=== PATIENT | male | born 1945 | race Caucasian/White ===

== ENCOUNTER 2023-11-08 09:47 | Inpatient (IN) | payer OTHER ==
[2023-11-08] MEDS ORDERED: LEVALBUTEROL 1.25 MG/3 ML NEB ONE (10:11)
[2023-11-08] MEDS ORDERED: METHYLPREDNISOLONE 125 MG INJ ONE (10:11)
[2023-11-08] MEDS ORDERED: MAGNESIUM SULFATE 1 gm IVPB 1 GM/100 ML BAG IV ONE (10:12)
--- NOTE | 2023-11-08 10:38 | RAD REPORT ---
EXAM DESCRIPTION: Marjorie Single View11/08/2023 10:11 am CLINICAL HISTORY: Shortness breath COMPARISON: 2013 FINDINGS: Bilateral interstitial lung opacities have developed Heart is normal size A battery pack overlies left chest IMPRESSION: Development of bilateral social lung opacities. This could represent an acute process broderick ch as pneumonitis/atypical pneumonia or chronic changes
[2023-11-08 10:41] LABS: Absolute Lymphocytes (CBC) 0.2 K/uL (0.7-4.9); Absolute Monocytes 1.2 K/uL (0.1-1.3); Absolute Neutrophil 7.5 K/uL (1.8-8.0); Basophils % 0.2 % (0-1.3); Hematocrit 41.5 % (39.6-49.0); Hemoglobin 13.9 g/dL (13.6-17.9); Lymphocytes % 1.9 % (15.3-44.8); MCH 32.8 pg (27.0-35.0); MCHC 33.6 g/dL (32.0-36.0); MCV 97.6 fL (80-100); MPV 9.4 fL (7.6-11.3); Monocytes % 13.3 % (3.3-12.3); Neutrophils % 84.6 % (41.7-73.7); Nucleated Red Blood Cells % 0.2 % (0-0); Platelets 256 thou/uL (152-406); RBC Red Blood Cell Count 4.25 M/uL (4.33-5.43); Red Cell Distribution Width 15.4 % (12.1-15.2)
[2023-11-08 10:55] LABS: SARS-CoV-2 Antigen CONTROL BLUE LINE VIS/BG OK; SARS-CoV-2 Antigen Rapid Res Negative (Negative)
[2023-11-08 11:03] LABS: Albumin 3.1 g/dL (3.4-5.0); Albumin/Globulin Ratio 0.7 (1.1-1.8); Anion Gap 14.5 mEq/L (5.0-15.0); Bilirubin Total 0.8 mg/dL (0.2-1.0); Globulin 4.7 g/dL (2.3-3.5); Potassium 4.5 mEq/L (3.5-5.1); Protein, Total 7.8 g/dL (6.4-8.2)
[2023-11-08 11:05] LABS: Troponin High Sensitivity 119.1 pg/mL (<58.9)
[2023-11-08 11:09] LABS: PT Prothrombin Time 28.3 SECONDS (9.5-12.5); PTT, Activated Partial Thromb 34.2 SECONDS (24.3-36.9); Protime INR 2.65
[2023-11-08] MEDS ORDERED: AZITHROMYCIN 500 MG INJ IVPB ONE (11:19)
[2023-11-08] MEDS ORDERED: NA CHLORIDE 0.9% 500 ML ONE (11:19)
[2023-11-08] MEDS ORDERED: CEFTRIAXONE 1000 MG/VIAL ONE (11:19)
[2023-11-08] MEDS ORDERED: NA CHLORIDE 0.9% 250 ML ONE (11:19)
[2023-11-08] MEDS ORDERED: INSULIN REGULAR (HUMAN) 100 UNIT/ML ONE (11:19)
--- NOTE | 2023-11-08 11:56 | EDPHYS ---
Physician Documentation [facility] Name: Drake Mosquera Age: 78 yrs Sex: Male : 1945 Arrival Date: 11/08/2023 Time: 09:47 Bed 5 Private MD: ED Physician Dameon Hudson HPI: 11/07 11:00 This 78 yrs old Male presents to ER via EMS with complaints of Shortness Of Breath, rn Found on floor. 11:00 The patient has shortness of breath at rest. Onset: The symptoms/episode began/occurred rn at an unknown time. Duration: The symptoms are continuous. The patient's shortness of breath is aggravated by exertion, is alleviated by nothing. Severity of symptoms: At their worst the symptoms were moderate in the emergency department the symptoms have improved. The patient has experienced a previous episode. Patient reports shortness of breath over the last couple of days, worsening today, generalized weakness and malaise, was found on floor and could not get up due to generalized weakness and dyspnea. EMS reports oxygen saturation in the 50s. Patient reports active smoker. Patient also reports chills but no fever. No hemoptysis. No history of DVT or PE. No chest pain.. Historical: - Allergies: 10:15 No Known Allergies; aa5 - PMHx: 15:39 PVD; High Cholesterol; CAD; Osteoarthritis; BPH; HTN; DM2; hb - PSHx: 15:39 Knee - Left; Splenic Laceration Repair; Femoral Artery Graft - Left; hb - Immunization history:: Adult Immunizations up to date. - Social history:: Smoking status: Patient reports the use of cigarette tobacco products. - Family history:: not pertinent. - Hospitalizations: : No recent hospitalization is reported. ROS: 11:00 Constitutional: Negative for fever, chills, and weight loss, Cardiovascular: Negative rn for chest pain, palpitations, and edema, Respiratory: Positive for cough and shortness of breath Abdomen/GI: Negative for abdominal pain, nausea, vomiting, diarrhea, and constipation, MS/Extremity: Negative for injury and deformity, Skin: Negative for injury, rash, and discoloration, Neuro: Positive for generalized weakness Exam: 11:00 Constitutional: This is a well developed, well nourished patient who is awake, alert, rn moderate tachypnea, disheveled Head/Face: Normocephalic, atraumatic. ENT: Dry mucous membranes, no stridor Cardiovascular: Regular rate and rhythm. No pulse deficits. Respiratory: Moderate tachypnea, diminished breath sounds bilateral bases. Some retractions present Abdomen/GI: Soft, non-tender MS/ Extremity: Pulses equal, no cyanosis. Neurovascular intact. Full, normal range of motion. Equal circumference. Neuro: Awake and alert, GCS 15 Vital Signs: 09:51 BP 149 / 70; Pulse 97; Resp 24; Pulse Ox 94% on Nebulizer Mask; iw 10:08 Resp 27; Pulse Ox 81% on 4 lpm NC; hb 10:38 BP 140 / 70; Pulse 89; Resp 18; Pulse Ox 100% on 40 lpm BiPAP; hb 11:07 BP 142 / 69; Pulse 86; Resp 18; Pulse Ox 98% on 40 lpm BiPAP; hb 11:58 BP 139 / 55; Pulse 89; Resp 21; Pulse Ox 95% on 40 lpm BiPAP; hb 13:00 BP 116 / 53; Pulse 78; Resp 15; Pulse Ox 96% on 40 lpm BiPAP; hb 14:00 BP 107 / 53; Pulse 77; Resp 16; Pulse Ox 95% on 40 lpm BiPAP; hb 15:00 BP 121 / 66; Pulse 77; Resp 15; Pulse Ox 99% on 40 lpm BiPAP; hb MDM: 09:49 Patient medically screened. rn 11:54 Differential diagnosis: CHF exacerbation, Chronic Obstructive Pulmonary Disease rn Myocardial Infarction pneumonia, Pneumothorax pulmonary edema, Pulmonary Embolism. Data reviewed: vital signs, nurses notes, lab test result(s), EKG, radiologic studies, plain films, and as a result, I will admit patient. Consideration of Admission/Observation Patient was admitted/placed on observation. Escalation of care including admission/observation considered. Management of patient was discussed with the following: Primary Care Provider: Dr. Sanchez, requests CT PE protocol and agrees with admission for pneumonia. I considered the following discharge prescriptions or medication management in the emergency department Medications were administered in the Emergency Department. See MAR. Care significantly affected by the following chronic conditions: Hypertension. Counseling: I had a detailed discussion with the patient and/or guardian regarding the historical points, exam findings, and any diagnostic results supporting the discharge/admit diagnosis, lab results, radiology results, the need for further work-up and treatment in the hospital. Response to treatment: the patient's symptoms have mildly improved after treatment, and as a result, I will admit patient. ED course: I personally spent 35 minutes engaged in work directly related to the individual patient's care. This does not include any time spent performing procedures. The patient has been deemed critically ill because of severe hypoxia and respiratory distress requiring noninvasive ventilation, bilateral pneumonia and need for admission with consultation with PCP. 13:45 ED course: Lactate downtrending. Sepsis reevaluation completed. rn 11/07 09:51 Order name: Blood Culture Adult (2) rn 11/07 09:51 Order name: CBC with Diff; Complete Time: 10:49 rn 11/07 09:51 Order name: CMP; Complete Time: 11:06 rn 11/07 09:51 Order name: Lactate w/ 2H reflex if indic.; Complete Time: 10:49 rn 11/07 09:51 Order name: Protime (+inr); Complete Time: 11:19 rn 11/07 09:51 Order name: Ptt, Activated; Complete Time: 11:19 rn 11/07 09:51 Order name: BNP; Complete Time: 11:06 rn 11/07 09:51 Order name: Troponin High Sensitivity; Complete Time: 11:06 rn 11/07 09:51 Order name: SARS RAPID; Complete Time: 10:58 rn 11/07 09:51 Order name: Flu; Complete Time: 11:06 rn 11/07 13:27 Order name: Lactate Sepsis 2 HR Follow-up; Complete Time: 13:45 EDMS 11/07 09:51 Order name: Chest Single View XRAY; Complete Time: 10:49 rn 11/07 10:04 Order name: BIPAP rn 11/07 11:07 Order name: CT Chest For PE Angio; Complete Time: 13:00 rn 11/07 09:51 Order name: EKG; Complete Time: 09:51 rn 11/07 09:51 Order name: Accucheck; Complete Time: 10:36 rn 11/07 09:51 Order name: Cardiac monitoring; Complete Time: 09:52 rn 11/07 09:51 Order name: EKG - Nurse/Tech; Complete Time: 09:52 rn 11/07 09:51 Order name: IV Saline Lock - Large Bore; Complete Time: 09:52 rn 11/07 09:51 Order name: Labs collected and sent; Complete Time: 10:18 rn 11/07 09:51 Order name: O2 Per Protocol; Complete Time: 09:52 rn 11/07 09:51 Order name: O2 Sat Monitoring; Complete Time: 09:52 rn 11/07 09:51 Order name: Vital Signs; Complete Time: 09:52 rn 11/07 10:39 Order name: Labs - recollect needed: recollect blue top please per robi from lab; aa Complete Time: 10:52 Administered Medications: 10:15 Drug: MethylPrednisoLONE IVP 125 mg IVP once Route: IVP; Site: right antecubital; aa5 11:00 Follow up: Response: No adverse reaction hb 10:15 Drug: Levalbuterol Inhalation 1.25 mg Inhalation once Route: Inhalation; aa5 11:00 Follow up: Response: No adverse reaction hb 10:15 Drug: Levalbuterol Inhalation 1.25 mg Inhalation once Route: Inhalation; aa5 11:00 Follow up: Response: No adverse reaction hb 10:15 Drug: Magnesium Sulfate IVPB 1 grams IVPB once over 1 hrs Route: IVPB; Infused Over: 1 aa5 hrs; Site: right antecubital; 11:16 Follow up: Response: No adverse reaction; IV Status: Completed infusion; IV Intake: hb 100ml 11:30 Drug: Rocephin IV 1 grams IV at calculated rate once; Given slow IV push per pharmacy hb instructions Route: IV; Rate: calculated rate; Site: right antecubital; 12:00 Follow up: Response: No adverse reaction; IV Status: Completed infusion hb 11:30 Drug: Insulin Regular Human Sub-Q 5 units Sub-Q once {Co-Signature: mb9 (Ni Barba [facility] RN).} Route: Sub-Q; Site: right upper arm; 12:05 Follow up: Response: No adverse reaction hb 11:33 Drug: Zithromax IVPB 500 mg IVPB once over 1 hrs; mix in 250 mL NS Route: IVPB; Infused hb Over: 1 hrs; Site: right antecubital; 13:30 Follow up: Response: No adverse reaction; IV Status: Completed infusion; IV Intake: hb 250ml 11:33 Drug: NS 0.9% IV 500 ml IV at bolus once Route: IV; Rate: bolus; Site: right antecubital; 12:05 Follow up: Response: No adverse reaction; IV Status: Completed infusion; IV Intake: hb 500ml Disposition: 11:54 Critical Care:. rn Disposition Summary: 11/08/23 11:55 Hospitalization Ordered Notes: Hospitalization Status: Inpatient Admission rn Provider: Cristhian Sanchez rn Condition: Stable rn Problem: new rn Symptoms: have improved rn Bed/Room Type: Standard rn Location: Telemetry/MedSurg (Inpatient)(11/08/23 15:43) eb Room Assignment: 213(11/08/23 15:43) eb Diagnosis - Pneumonia, unspecified organism rn - Hypoxemia rn - Dyspnea, unspecified rn Forms: - Medication Reconciliation Form rn - SBAR form rn - Leadership Thank You Letter web marketing intern time excluding procedures: 11:54 Critical care time: Bedside Care: 35 minutes, Consultation: 5 minutes. Total time: 40 rn minutes Signatures: Dispatcher [employer] EDDameon Warner MD MD rn Calderon, Audri RN RN aa5 Sunita Langley RN RN Bianca Zamora Kelly RN RN kb3 Ni Barab RN mb9 Corrections: (The following items were deleted from the chart) 10:55 10:44 Labs - recollect needed ordered. eb hb 14:52 11:55 Telemetry/MedSurg (Inpatient) rn kb3 14:52 11:55 rn kb3 15:43 14:52 [facility] ER HOLD kb3 eb 15:43 14:52 ERHOLD- kb3 eb
--- NOTE | 2023-11-08 11:56 | ER ---
Nurse's Notes [facility] Name: Drake Mosquera Age: 78 yrs Sex: Male : 1945 Arrival Date: 11/08/2023 Time: 09:47 Bed 5 Private MD: Diagnosis: Pneumonia, unspecified organism;Hypoxemia;Dyspnea, unspecified Presentation: 11/07 09:48 Chief complaint: EMS states: was found on floor X 1-2 hours, was 50's on RA, no hx of iw COPD or CHF. 09:48 Method Of Arrival: EMS iw 09:51 Coronavirus screen: Client presents with at least one sign or symptom that may indicate iw coronavirus-19. Ebola Screen: Patient negative for fever greater than or equal to 101.5 degrees Fahrenheit, and additional compatible Ebola Virus Disease symptoms Patient denies exposure to infectious person. Patient denies travel to an Ebola-affected area in the 21 days before illness onset. No symptoms or risks identified at this time. 09:51 Acuity: SHELLIE 2 iw 09:52 Initial Sepsis Screen: Does the patient meet any 2 criteria? RR > 20 per min. HR > 90 iw bpm. Does the patient have a suspected source of infection? No. Patient's initial sepsis screen is negative. Risk Assessment: Do you want to hurt yourself or someone else? Patient reports no desire to harm self or others. Onset of symptoms was November 08, 2023. Care prior to arrival: IV initiated. 18 GA, in the right antecubital area, Glucose check: 461. Historical: - Allergies: 10:15 No Known Allergies; aa5 - PMHx: 15:39 PVD; High Cholesterol; CAD; Osteoarthritis; BPH; HTN; DM2; hb - PSHx: 15:39 Knee - Left; Splenic Laceration Repair; Femoral Artery Graft - Left; hb - Immunization history:: Adult Immunizations up to date. - Social history:: Smoking status: Patient reports the use of cigarette tobacco products. - Family history:: not pertinent. - Hospitalizations: : No recent hospitalization is reported. Screenin:15 [facility] ED Fall Risk Assessment (Adult) History of falling in the last 3 months, mb9 including since admission Yes- single mechanical fall (1 pt) Confusion or Disorientation No (0 pts) Intoxicated or Sedated No (0 pts) Impaired Gait Yes (1 pt) Mobility Assist Device Used No (0 pt) Altered Elimination No (0 pt) Score/Fall Risk Level 3 or more points = High Risk Oriented to surroundings, Maintained a safe environment, Educated pt \T\ family on fall prevention, incl call for assistance when getting out of bed, Assessed \T\ reinforced patient's understanding of fall precautions. Abuse screen: Denies threats or abuse. Nutritional screening: No deficits noted. Tuberculosis screening: No symptoms or risk factors identified. Assessment: 10:14 Reassessment: RT at bedside placing BiPap. mb9 10:20 General: Appears distressed, Behavior is calm, cooperative. Pain: Denies pain. Neuro: hb Level of Consciousness is awake, alert, obeys commands, Oriented to person, place, time, situation. Cardiovascular: Patient's skin is warm and dry. Rhythm is sinus tachycardia. Respiratory: Airway is patent Respiratory effort is labored, Respiratory pattern is tachypnea Breath sounds are coarse bilaterally. GI: No signs and/or symptoms were reported involving the gastrointestinal system. : No signs and/or symptoms were reported regarding the genitourinary system. EENT: No signs and/or symptoms were reported regarding the EENT system. Derm: Skin is pink, warm \T\ dry. Musculoskeletal: No signs and/or symptoms reported regarding the musculoskeletal system. 10:24 Reassessment: BiPAP 12/5 R12, 40% FiO2. hb 11:06 Reassessment: Remains on BiPAP, watching television in no apparent distress. Patient hb states symptoms have improved. 11:58 Reassessment: Patient appears in no apparent distress at this time. Patient and/or hb family updated on plan of care and expected duration. Pain level reassessed. Patient is alert, oriented x 3, equal unlabored respirations, skin warm/dry/pink. 13:30 Reassessment: Patient appears in no apparent distress at this time. Patient and/or hb family updated on plan of care and expected duration. Pain level reassessed. Patient is alert, oriented x 3, equal unlabored respirations, skin warm/dry/pink. 14:39 Reassessment: Patient appears in no apparent distress at this time. Patient and/or hb family updated on plan of care and expected duration. Pain level reassessed. Patient is alert, oriented x 3, equal unlabored respirations, skin warm/dry/pink. 15:15 Reassessment: Patient appears in no apparent distress at this time. Patient and/or hb family updated on plan of care and expected duration. Pain level reassessed. Patient is alert, oriented x 3, equal unlabored respirations, skin warm/dry/pink. Vital Signs: 09:51 BP 149 / 70; Pulse 97; Resp 24; Pulse Ox 94% on Nebulizer Mask; iw 10:08 Resp 27; Pulse Ox 81% on 4 lpm NC; hb 10:38 BP 140 / 70; Pulse 89; Resp 18; Pulse Ox 100% on 40 lpm BiPAP; hb 11:07 BP 142 / 69; Pulse 86; Resp 18; Pulse Ox 98% on 40 lpm BiPAP; hb 11:58 BP 139 / 55; Pulse 89; Resp 21; Pulse Ox 95% on 40 lpm BiPAP; hb 13:00 BP 116 / 53; Pulse 78; Resp 15; Pulse Ox 96% on 40 lpm BiPAP; hb 14:00 BP 107 / 53; Pulse 77; Resp 16; Pulse Ox 95% on 40 lpm BiPAP; hb 15:00 BP 121 / 66; Pulse 77; Resp 15; Pulse Ox 99% on 40 lpm BiPAP; hb ED Course: 09:48 Patient arrived in ED. iw 09:49 Dameon Hudson MD is Attending Physician. rn 09:52 Triage completed. iw 09:52 Oxygen administered via a nebulizer mask. hb 09:55 Patient has correct armband on for positive identification. Placed in gown. Bed in low hb position. Call light in reach. Side rails up X 1. Client placed on continuous cardiac and pulse oximetry monitoring. NIBP monitoring applied. teletypesetter monitor on. Pulse ox on. NIBP on. 10:10 Notified ED physician of other SpO2 81 on 4LNC, RT notified of BIPAP order. hb 10:13 Chest Single View XRAY In Process Unspecified. EDMS 10:14 Initial lab(s) drawn, by me, sent to lab. First set of blood cultures drawn by me, EKG hb done, by ED staff, reviewed by Dameon Hudson MD COVID swab sent to lab. Flu and/or RSV swab sent to lab. Inserted saline lock: 20 gauge in left antecubital area, using aseptic technique. Blood collected. 10:15 O2 via BIPAP. mb9 10:15 Arm band placed on. mb9 10:16 Door closed. Noise minimized. Warm blanket given. Pillow given. mb9 10:18 Sunita Langley, RN is Primary Nurse. hb 10:18 Provided Education on: tests, result times. hb 10:24 No provider procedures requiring assistance completed. hb 10:36 BIPAP Sent. hb 10:53 Lab(s) recollected, by me, sent to lab. hb 11:41 RN/COVER CUTTER escort patient out of department to CT scan. hb 11:53 CT Chest For PE Angio In Process Unspecified. EDMS 11:55 Cristhian Sanchez MD is Hospitalizing Provider. rn 15:28 Patient admitted, IV remains in place. hb Administered Medications: 10:15 Drug: MethylPrednisoLONE IVP 125 mg IVP once Route: IVP; Site: right antecubital; aa5 11:00 Follow up: Response: No adverse reaction hb 10:15 Drug: Levalbuterol Inhalation 1.25 mg Inhalation once Route: Inhalation; aa5 11:00 Follow up: Response: No adverse reaction hb 10:15 Drug: Levalbuterol Inhalation 1.25 mg Inhalation once Route: Inhalation; aa5 11:00 Follow up: Response: No adverse reaction hb 10:15 Drug: Magnesium Sulfate IVPB 1 grams IVPB once over 1 hrs Route: IVPB; Infused Over: 1 aa5 hrs; Site: right antecubital; 11:16 Follow up: Response: No adverse reaction; IV Status: Completed infusion; IV Intake: hb 100ml 11:30 Drug: Rocephin IV 1 grams IV at calculated rate once; Given slow IV push per pharmacy hb instructions Route: IV; Rate: calculated rate; Site: right antecubital; 12:00 Follow up: Response: No adverse reaction; IV Status: Completed infusion hb 11:30 Drug: Insulin Regular Human Sub-Q 5 units Sub-Q once {Co-Signature: jamal (Ni Barba Nel RN).} Route: Sub-Q; Site: right upper arm; 12:05 Follow up: Response: No adverse reaction hb 11:33 Drug: Zithromax IVPB 500 mg IVPB once over 1 hrs; mix in 250 mL NS Route: IVPB; Infused hb Over: 1 hrs; Site: right antecubital; 13:30 Follow up: Response: No adverse reaction; IV Status: Completed infusion; IV Intake: hb 250ml 11:33 Drug: NS 0.9% IV 500 ml IV at bolus once Route: IV; Rate: bolus; Site: right antecubital; 12:05 Follow up: Response: No adverse reaction; IV Status: Completed infusion; IV Intake: hb 500ml Medication: 10:20 VIS not applicable for this client. hb Intake: 11:16 IV: 100ml; Total: 100ml. hb 12:05 IV: 500ml; Total: 600ml. hb 13:30 IV: 250ml; Total: 850ml. hb Outcome: 11:55 Decision to Hospitalize by Provider. rn 15:26 Admitted to ER Hold. Please see [facility] for further documentation. hb 15:26 Condition: stable 15:26 Instructed on the need for admit, Demonstrated understanding of instructions, 16:42 Patient left the ED. mb9 Signatures: Dispatcher [employer] EDPat Maxwell RN RN Dameon Hudson MD MD rn Calderon, Audri, RN RN aa5 Sunita Langley RN RN hb Breneman, Mary Beth, RN RN mb9 Ni Barba RN mb9 Corrections: (The following items were deleted from the chart) 11:07 11:06 Reassessment: Patient appears in no apparent distress at this time. Patient hb and/or family updated on plan of care and expected duration. Pain level reassessed. hb
--- NOTE | 2023-11-08 12:25 | RAD REPORT ---
EXAM DESCRIPTION: CT - Chest For Pe Angio - 11/08/2023 11:51 am CLINICAL HISTORY: Shortness of breath COMPARISON: 2012 TECHNIQUE: Dynamically enhanced axial 3 mm thick images of the chest were obtained during administra tion of 100 mL Isovue 370 IV contrast. Coronal and oblique reconstruction images were generated and r eviewed. Exam utilizes a protocol for optimal evaluation of pulmonary arterial tree. Maximum intensity projections 3D imaging was utilized All CT scans are performed using dose optimization technique as appropriate and may include automated exposure control or mA/KV adjustment according to patient size. FINDINGS: A pulmonary embolus is not seen. A thoracic aortic aneurysm is not noted. A pleural effusion is not seen. A pericardial effusion is not seen. Mild right middle and lower lobe and left upper lobe opacities IMPRESSION: Negative for a pulmonary embolism. Mild bilateral pulmonary opacities may indicate a mild pneumonia or inflammation
--- NOTE | 2023-11-08 13:13 | HP ---
Date of Admission: 11/08/2023 Chief Complaint: Cough, congestion, and shortness of breath. History Of Present Illness: This is an 78-year-old male patient with COPD who continues to smoke, lives at home, started getting sick about 2 days ago with cough, chest congestion, coughing up some mucus and shortness of breath. His symptoms got worse over a period of last 2 days and this morning, as he was walking in his house trying to feed his cat, either because of weakness or losing balance, he got down on the floor and he was not able to get up and obviously very short of breath, so he ended up calling his neighbor who came over there and called ambulance, and the patient was brought into emergency room via EMS. His oxygen saturation by EMS upon arrival was 50%. After he came to emergency room, he was evaluated and I was contacted requesting admission to the hospital. When I saw him in the emergency room this morning he was on BiPAP with oxygen, and he was awake, alert, oriented x3, and answering all the questions appropriately. Allergies: NO KNOWN ALLERGIES. Medications: Amiodarone 200 mg daily, Aspirin 81 mg daily, Xarelto 15 mg daily, Lisinopril 5 mg two times a day, Janumet 100/1000 mg daily, Rosuvastatin 10 mg daily, Boniva once a month, Glimepiride 2 mg two times a day. Review of Systems: Respiratory: As mentioned above. Constitutional: As mentioned above. All other systems reviewed and negative. Past Medical History: Significant for hypertension, hyperlipidemia, peripheral vascular disease, coronary artery disease, osteoarthritis at multiple sites, type 2 diabetes mellitus, prostate cancer, osteoporosis, atrial fibrillation, and COPD. Past Surgical History: Left knee surgery, left leg surgery for PVD. Family History: Father had lung cancer. Sister had diabetes. Brother had myocardial infarction. Social History: Positive for smoking. Use of alcohol, occasional. Physical Examination: Vital Signs: Height 5 feet 10 inches, weight 165 pounds, temperature 98, pulse 97, blood pressure 149/70, oxygen saturation 94%, respiratory rate 24. General: Awake, alert, oriented, not in distress. HEENT: Head atraumatic, normocephalic. Conjunctivae nonerythematous. Sclerae white. Mouth, no thrush or edema noted. Ears/Nose, no mass, lesion, discharge noted. Neck: Supple. No JVD, lymph nodes, bruit, thyromegaly noted. Lungs: Bilateral diminished but equal entry. The patient on BiPAP with some difficulty breathing noted while talking and unable to complete sentence without difficulty breathing. Heart: Normal heart sounds, no murmur or gallop. Abdomen: Soft, bowel sounds normal. No guarding, rigidity, tenderness, mass, hepatosplenomegaly, distention, or bruit noted. Extremities: No leg edema. No calf tenderness. Skin: No rash, ulcer, cellulitis. Lymphatics: No lymph node enlargement in neck, supraclavicular, infraclavicular region. Neuro: No focal neurological deficit. Chest: Cachectic looking with muscle wasting. External Genitalia: Deferred. Rectal: Deferred. Labs: White count 8.9, hemoglobin 13.9, platelets 256. Sodium 139, potassium 4.5, chloride 102, bicarb 27, BUN 36, creatinine 1.29, glucose 447, Liver function tests unremarkable. Lactic acid 3.8. Chest x-ray shows bilateral interstitial pneumonia type of changes, troponin 119 and COVID-19 test negative. Impression: 1. Acute respiratory failure with hypoxia. 2. Acute exacerbation of COPD. 3. Pneumonia. 4. Coronary artery disease. 5. Hypertension. 6. Hyperlipidemia. 7. Peripheral vascular disease. 8. Prostate cancer. 9. Osteoarthritis, multiple sites. 10. NIDDM. 11. Atrial fibrillation. Plan: We will go ahead and admit the patient to hospital for further evaluation and management of this problem. The patient is appropriate for inpatient and is expected to spend 2 midnights in hospital. For his acute respiratory failure with hypoxia, I will go ahead and continue oxygen replacement therapy along with BiPAP. For his COPD exacerbation, we will go ahead and start him on IV steroids, IV antibiotics. We will also go ahead and give him nebulizer treatment per order. For his pneumonia, empiric antibiotics will be started and we will follow up on chest x-ray tomorrow. For diabetes, we will be manage it with sliding scale insulin and diabetic diet. For hypertension, we will continue his antihypertensive medication, monitor blood pressure, and adjust blood pressure medication if necessary. Coronary artery disease and peripheral vascular disease as well as hyperlipidemia will not require any further intervention except continuation of home medications. Atrial fibrillation problem is stable and will continue Amiodarone and Xarelto as per order. Overall prognosis is guarded, and I have communicated with him regarding his advance directives and he has informed me that in the event of cardiopulmonary arrest, he does not want any heroic measures like CPR, defibrillation, or ventilator support, and he wants DNR order in place. The patient already stated that he does not want to stay in hospital and wants to go home and I tried to convince him about importance of staying in the hospital to get the treatment that he needs for all these acute medical problems, and if his condition improves, as we are expecting, then day after tomorrow, which is on Saturday, he will be able to go home, but we will have to just take a day at a time and see how he responds to the treatment. The patient has 2 weeks' long Holter monitor that was placed by his director of student aid, Dr. Green, as of yesterday and that is in place over left anterior chest wall, and he was advised to make sure that nobody takes that off while in the hospital. ARI/MODL Voice ID: [id number]
[2023-11-08] MEDS ORDERED: IPRATROPIUM BROM 0.5MG/2.5ML NEB PRN (15:26)
[2023-11-08] MEDS ORDERED: ONDANSETRON 4 MG/2 ML VIAL IV PRN (15:26)
[2023-11-08] MEDS ORDERED: ALBUTEROL 2.5 MG/3 ML NEB SOL NEB PRN (15:26)
[2023-11-08] MEDS ORDERED: D10W 250 ML BAG IV PRN (16:32)
[2023-11-08] MEDS ORDERED: GLUCAGON 1 MG/VIAL IM PRN (16:32)
[2023-11-08] MEDS ORDERED: ENOXAPARIN 40 MG/0.4 ML SQ SCH (17:00)
[2023-11-08] MEDS: METHYLPREDNISOLONE 40 MG INJ IV SCH (17:40)
[2023-11-08] MEDS: RIVAROXABAN 15 MG TABLET PO SCH (17:40)
[2023-11-08] MEDS: ALBUTEROL 2.5 MG/3 ML NEB SOL NEB SCH (20:19)
[2023-11-08] MEDS: IPRATROPIUM BROM 0.5MG/2.5ML NEB SCH (20:19)
[2023-11-08] MEDS: CEFTRIAXONE 1,000 MG in NA CHLORIDE 0.9% 50 ML IVPB SCH (20:42)
[2023-11-08] MEDS: lisinopriL 5 MG TAB PO SCH (20:44)
[2023-11-08] MEDS: ROSUVASTATIN 10 MG TAB PO SCH (20:44)
[2023-11-08] MEDS: INSULIN REGULAR (HUMAN) 100 UNIT/ML SQ SCH (20:45)
[2023-11-08] MEDS: INSULIN GLARGINE 100 UNIT/ML SQ SCH (20:45)
[2023-11-08] MEDS: DULERA 200/5 (MOMETASONE/FORMOTEROL) INHALER IH SCH (21:50)
[2023-11-09 07:13] LABS: Absolute Lymphocytes (CBC) 0.3 K/uL (0.7-4.9); Absolute Monocytes 0.6 K/uL (0.1-1.3); Basophils % 0.1 % (0-1.3); Hematocrit 36.5 % (39.6-49.0); Hemoglobin 12.5 g/dL (13.6-17.9); Lymphocytes % 3.4 % (15.3-44.8); MCH 33.1 pg (27.0-35.0); MCHC 34.3 g/dL (32.0-36.0); MCV 96.5 fL (80-100); MPV 9.6 fL (7.6-11.3); Monocytes % 7.8 % (3.3-12.3); Neutrophils % 88.7 % (41.7-73.7); Nucleated Red Blood Cells % 0.1 % (0-0); Platelets 210 thou/uL (152-406); RBC Red Blood Cell Count 3.79 M/uL (4.33-5.43); Red Cell Distribution Width 14.9 % (12.1-15.2)
[2023-11-09 07:36] LABS: Anion Gap 7.9 mEq/L (5.0-15.0); Potassium 3.9 mEq/L (3.5-5.1)
[2023-11-09 08:41] LABS: Band Neutrophils 6 % (0-1); Differential Total Cells Count 100; Lymphocytes 8 % (15-42); Monocytes 7 % (0-10); Segmented Neutrophils 78 % (40-80)
[2023-11-09 08:42] LABS: Blood Morphology Comment NOT SEEN (NOT SEEN); Platelet Estimate ADEQ; Reactive Lymphocytes 1 %
[2023-11-09] MEDS ORDERED: lisinopriL 5 MG TAB PO SCH (08:46)
[2023-11-09] MEDS: lisinopriL 5 MG TAB PO SCH (09:00)
[2023-11-09] MEDS: ASPIRIN EC 81 MG TAB PO SCH (09:48)
--- NOTE | 2023-11-09 10:29 | RAD REPORT ---
EXAM DESCRIPTION: RAD - Chest Single View - 11/09/2023 10:18 am CLINICAL HISTORY: pneumonia COMPARISON: Chest Single View dated 11/08/2023; CHEST PA AND LAT 2 VIEW dated 10/14/2013; CHEST SINGLE VIEW dated 03/12/2013; CHEST SINGLE VIEW dated 03/11/2013; Chest For Pe Angio dated 11/08/2023 FINDINGS: Lines: None. Lungs: Mild ill-defined opacities are present bilaterally and are similar to prior . Pleural: No significant pleural effusions or pneumothorax. Cardiac: The heart size is within normal limits. Mediastinum: Within normal limits. Bones: No acute fractures. Other: Battery pack overlies the left hemithorax. IMPRESSION: Similar mild bilateral airspace disease likely reflecting pneumonia.
[2023-11-09] MEDS: AMIODARONE HCL 200 MG TAB PO SCH (10:31)
[2023-11-09] MEDS: AZITHROMYCIN IV 250 MG in NA CHLORIDE 0.9% 250 ML IVPB SCH (10:52)
--- NOTE | 2023-11-09 11:19 | PN ---
Date of Progress Note: 11/09/2023 Subjective: The patient was seen this morning for followup, no new complaints or problems reported b y him. Overall, he feels a lot better. This morning when I saw him, he was on nasal cannula oxygen 5 L/minute oxygen. Denies any nausea, vomiting. No chest pain. Denies any shortness of breath and tells me that he is ready to go home. Objective: Vital Signs: Reviewed. HEENT: Unremarkable. Lungs: Bilateral good equal entry with presence of rales noted in lower lung wade. Not using acce ssory muscles of respiration. He is able to talk in full sentences without having to stop and withou t any obvious difficulty breathing. Heart: Sounds normal. Abdomen: Soft, bowel sounds normal. No guarding, rigidity, tenderness, or distention. Extremities: No leg edema. Laboratory Data: White count 7.9, hemoglobin 12.5, platelets 210. Sodium 139, potassium 3.9, chlori de 105, bicarb 30, BUN 49, creatinine 1.08, glucose 343. ProBNP 2992. Impression: 1.Acute respiratory failure with hypoxia. 2.Pneumonia. 3.Acute exacerbation of chronic obstructive pulmonary disease. 4.Hypertension. 5.Type 2 diabetes mellitus, uncontrolled. Plan: We will go ahead and continue current antibiotic, which is azithromycin and ceftriaxone. Cont inue oxygen replacement therapy and nebulizer treatment as well as inhaler per order. The patient is currently on 5 L/minute nasal cannula oxygen and we will try to wean off if oxygen saturation remain s more than 90%. We will need to evaluate as he gets closer to discharge to see whether he needs to go home with home oxygen or not. Continue IV steroid, Solu-Medrol as per order. We will continue hi s antihypertensive medication. For diabetes, he is on sliding scale insulin as well as long-acting i nsulin at bedtime. Starting today, we will add glimepiride 2 mg 2 times a day as he takes at home. Fingerstick blood sugar readings reviewed. I have discussed with the patient and explained him the i mportance of staying in the hospital until he is medically stable for discharge and that may take ano ther 1 or 2 days. We will also need to make a decision regarding home oxygen as we get closer to the discharge and all those details were discussed with him. He is telling me that he is in process of selling his house and he will be moving to [place] to live with his son and he will still continue to come see me and his weight loss centre manager, Dr. Green for his medical care. ARI/MODL Voice ID: [id number] Report ID: [id number]
[2023-11-09] MEDS: GLIMEPIRIDE 2 MG TABLET PO SCH (16:55)
[2023-11-10] MEDS: predniSONE 20 MG TAB PO SCH (22:04)
[2023-11-11 04:27] LABS: Absolute Lymphocytes (CBC) 0.5 K/uL (0.7-4.9); Absolute Monocytes 0.9 K/uL (0.1-1.3); Absolute Neutrophil 11.9 K/uL (1.8-8.0); Basophils % 0.1 % (0-1.3); Hematocrit 37.1 % (39.6-49.0); Hemoglobin 12.1 g/dL (13.6-17.9); Lymphocytes % 3.8 % (15.3-44.8); MCH 31.6 pg (27.0-35.0); MCHC 32.7 g/dL (32.0-36.0); MCV 96.8 fL (80-100); MPV 10.1 fL (7.6-11.3); Monocytes % 6.9 % (3.3-12.3); Platelets 208 thou/uL (152-406); RBC Red Blood Cell Count 3.83 M/uL (4.33-5.43); Red Cell Distribution Width 15.4 % (12.1-15.2)
[2023-11-11 04:39] LABS: Neutrophils % 89.2 % (41.7-73.7)
[2023-11-11 04:57] LABS: Anion Gap 6.4 mEq/L (5.0-15.0); Magnesium 2.4 mg/dL (1.6-2.4); Potassium 4.4 mEq/L (3.5-5.1)
[2023-11-11] MEDS: ACETYLCYST 20% 4 ML VIAL IH SCH (07:00)
--- NOTE | 2023-11-11 07:42 | RAD REPORT ---
EXAM DESCRIPTION: RAD - Chest Single View - 11/11/2023 4:06 am CLINICAL HISTORY: pneumonia Chest pain. COMPARISON: Chest Single View dated 11/09/2023; Chest Single View dated 11/08/2023; CHEST PA AND LAT 2 VIEW dated 10/14/2013; CHEST SINGLE VIEW dated 03/12/2013 FINDINGS: Portable technique limits examination quality. Moderate airspace opacity has developed in the right upper lobe appearing significantly worse relativ e to 11/09/2023 study compatible with right upper lobe pneumonia. The heart is mildly enlarged in siz e. No displaced fractures.Recorder device is present. IMPRESSION: Moderate right upper lobe consolidating pneumonia has developed since prior study
[2023-11-11] MEDS: PIPER TAZO 3.375 GM in NA CHLORIDE 0.9% 100 ML IV SCH (08:19)
[2023-11-11] MEDS ORDERED: ACETYLCYST 20% 4 ML VIAL IH ONE (08:44)
--- NOTE | 2023-11-11 12:06 | P.CNS ---
Date of Consult: 11/11/23 Reason for Consult: Right upper lobe pneumonia Chief Complaint: Dizziness and blackout History of Present Illness: Patient is 78 years of age started having problem on apparently he fainted had a near syncopal attack. In the emergency room and is a heavy cigar smoker smokes 1 box a day or heavy tobacco abuser complain of dyspnea on exertion for the past 5 years prior history of COPD does not use any bronchodilators has not developed a right upper lobe infiltrate Allergies No Known Allergies Allergy (Verified 09/24/12 01:47) Home Medications: Glimepiride 1 mg PO BIDAC 03/05/13 Rosuvastatin [Crestor*] 5 mg PO BEDTIME 03/05/13 Sildenafil Citrate [Viagra] 50 mg PO PRN PRN 03/05/13 Amox/Clavulanate [Augmentin 875-125 Tab*] 875 mg PO BID #14 tab 03/12/13 Hydrocodone/Acetaminophen [Vicodin 5-325 mg Tablet] 1 each PO Q8HP PRN #21 tablet 03/12/13 Rivaroxaban [Xarelto*] 20 mg PO DAILY #30 tablet 03/12/13 Sotalol HCl [Sotalol] 80 mg PO BID #60 tablet 03/12/13 Tiotropium [place] [Spiriva] 1 spray IH DAILY #1 cap.w.dev 03/12/13 - Past Medical/Surgical History Diabetic: Yes -: Peripheral vascular disease -: hypercholesterolemia -: coronary artery disease -: osteoarthritis-multiple sites -: BPH, HTN, NIDDM -: Recently/healing fractured left posterior ribs (4-5 ribs) from fall -: Fx ribs caused lacerated spleen. -: Left knee surg -: Left femoral artery transplant approx 7 yrs ago -: Lacerated spleen repaired - Social History Smoking Status: Current every day smoker Alcohol use: Yes CD- Drugs: No Caffeine use: Yes Review of Systems 10-point ROS is otherwise unremarkable General: Weakness Physical Examination Temp Pulse Resp BP Pulse Ox 98.0 F 68 19 152/70 H 94 11/11/23 08:00 11/11/23 08:19 11/11/23 08:00 11/11/23 08:19 11/11/23 08:00 General: Alert, In no apparent distress, Oriented x3 Neck: Supple Respiratory: Clear to auscultation bilaterally, Diminished Cardiovascular: No edema, Normal pulses Gastrointestinal: Normal bowel sounds, Hypoactive, Soft and benign Musculoskeletal: No clubbing, No swelling - Problems (1) Pneumonia Current Visit: Yes Status: Acute Plan: Patient is 78 years of age admitted with a syncopal attack he has now a very impressive right upper lobe pneumonia suspect he has underlying COPD is a very heavy tobacco abuser in addition has dyspnea on exertion labs chemistries reviewed white count is mildly elevated so far cultures are negative chest x-ray reviewed patient has not had any fever hemodynamically stable some prednisone patient is currently on Zosyn and azithromycin patient is not at risk for resistant organisms at discharge recommend Augmentin or cephalosporin with doxycycline atypical coverage blood sugars elevated dose of Lasix Qualifiers: Pneumonia type: due to unspecified organism Laterality: right
[2023-11-11] MEDS: FUROSEMIDE 20 MG/ 2ML VIAL IV ONE (13:10)
--- NOTE | 2023-11-11 14:28 | EKG ---
Test Date: 2023-11-08 Test Time: 08:50:30 Last Code Striper: SAMI MEASUREMENT RESULTS: Intervals: Rate: 96 [place]: 230 QRSD: 102 QT: 390 QTc: 492 [place]: P: 90 [place]: 230 QRS: 58 T: 64 INTERPRETIVE STATEMENTS: Sinus rhythm with 1st degree AV block with premature atrial complexes Nonspecific ST and T wave abnormality Prolonged QT Abnormal ECG Compared to ECG 03/08/2013 09:18:00 Atrial premature complex(es) now present First degree AV block now present Prolonged QT interval now present Atrial fibrillation no longer present ST (T wave) deviation still present Electronically Signed On 11-11-23 14:17:09 CDT by Joaquin Merritt
--- NOTE | 2023-11-11 21:12 | PN ---
Date of Progress Note: 11/11/2023 Subjective: The patient was seen this morning for followup. No new complaints or problems reported by him. Lying in bed, not in distress. Objective: Vital Signs: Reviewed. HEENT: Unremarkable. Lungs: Bilateral good equal air entry. Presence of some rales noted in lower lung wade. Not usin g accessory muscles of respiration and he is on 3 L/minute nasal cannula oxygen this morning. Heart: Sounds normal. Abdomen: Soft, bowel sounds normal. No guarding, rigidity, tenderness, distention. Extremities: No leg edema. Laboratory Data: White count 13.3, hemoglobin 12.1, platelets 208. Sodium 141, potassium 4.4, chlor klarissa 107, bicarb 32, BUN 27, creatinine 0.80, glucose 185, magnesium 2.4. Impression: 1.Pneumonia. 2.Acute exacerbation of chronic obstructive pulmonary disease. 3.Acute respiratory failure with hypoxia. 4.Type 2 diabetes mellitus. 5.Hypertension. Plan: We will go ahead and continue azithromycin, but stop ceftriaxone and start the patient on Zosy n as per order. His chest x-ray from this morning has shown worsening of infiltrate in the right lalitha g and some of it could be atelectasis and some of it could be just pneumonia, but in any case, I will change antibiotics. I have ordered Mucomyst nebulizer treatment and chest percussion. He is gettin g albuterol nebulizer treatment, which we will continue that. Social Service to make arrangements fo r home oxygen. I have requested consultation from Dr. Herrera and continue oral prednisone and othe r current medical management. We will repeat chest x-ray tomorrow. Details and plan of treatment disc ussed with the patient. ARI/MODL Voice ID: [id number] Report ID: [id number]
--- NOTE | 2023-11-12 08:16 | RAD REPORT ---
EXAM DESCRIPTION: [facility] Single View11/12/2023 4:06 am CLINICAL HISTORY: Chest pain COMPARISON: November 11, 2023 FINDINGS: Mild improvement in the right upper lobe consolidation No other change IMPRESSION: Mild improvement in a right upper lobe pneumonia
[2023-11-12] MEDS: METFORMIN HCL 500 MG TAB PO SCH (09:12)
--- NOTE | 2023-11-12 13:21 | P.PN ---
Subjective Date of Service: 11/12/23 Chief Complaint: RUL pneumonia Physical Examination - Vital Signs Temperature: 98.6 F Blood Pressure: 139/63 Pulse: 76 Respirations: 25 Pulse Ox (%): 91 Assessment And Plan - Current Problems (Diagnosis) (1) Pneumonia Current Visit: Yes Status: Acute Plan: Patient is 78 years of age admitted with a syncopal attack he has now a very impressive right upper lobe pneumonia suspect he has underlying COPD is a very heavy tobacco abuser in addition has dyspnea on exertion labs chemistries reviewed white count is mildly elevated so far cultures are negative chest x-ray reviewed patient has not had any fever hemodynamically stable some prednisone patient is currently on Zosyn and azithromycin patient is not at risk for resistant organisms at discharge recommend Augmentin or cephalosporin with doxycycline atypical coverage blood sugars elevated dose of Lasix Qualifiers: Pneumonia type: due to unspecified organism Laterality: right
--- NOTE | 2023-11-12 16:26 | P.PN ---
Subjective Date of Service: 11/12/23 Chief Complaint: RUL pneumonia Subjective: Improving (Doing well no complaints) Review of Systems 10-point ROS is otherwise unremarkable General: Weakness Physical Examination - Vital Signs Temperature: 98.6 F Blood Pressure: 139/63 Pulse: 76 Respirations: 25 Pulse Ox (%): 91 - Physical Exam General: Alert, Oriented x3 Neck: Supple Respiratory: Clear to auscultation bilaterally Cardiovascular: No edema Assessment And Plan - Current Problems (Diagnosis) (1) Pneumonia Current Visit: Yes Status: Acute Plan: RUL pneumonia improving. May need Home home O2. veliz eot Po Zihtomax or Doxy and PO augmentin DC planning. CXRY slight improvement/ Avoid steroid bronchodilators due to pneumonia Pt is onSpriv change to Anoro. Willneeds f/u CXRY in4 wks and OP PFT s/ Avoid steroids Qualifiers: Pneumonia type: due to unspecified organism Laterality: right
--- NOTE | 2023-11-12 23:26 | PN ---
Date of Progress Note: 11/12/2023 Subjective: The patient was seen this morning for followup. No new complaints or problems reported by him. He remains on nasal cannula oxygen at 3 L/minute. Objective: Vital Signs: Reviewed. He remains afebrile. HEENT: Unremarkable. Lungs: Bilateral good equal air entry with presence of diminished air entry in the right mid lung fi eld and crackles in both lower lung wade. Not using accessory muscles of respiration. Heart: Sounds normal. Abdomen: Soft. Bowel sounds normal. No guarding, rigidity, tenderness, distention. Extremities: No leg edema. Laboratory Data: Chest x-ray from this morning shows slight improvement in pneumonia compared to yes terday. Impression: 1.Pneumonia. 2.Acute exacerbation of COPD. 3.Acute respiratory failure with hypoxia. 4.Hypertension. 5.Type 2 diabetes mellitus. Plan: We will go ahead and continue current diabetes medication and blood pressure medications. We will continue current prednisone which is 20 mg 2 times a day. The patient is on Zosyn and azithromy tammi. We will continue that. Repeat chest x-ray tomorrow. Continue nebulizer treatment and dependin g on tomorrow's chest x-ray, we will decide if we can plan to discharge him to go home or not. His home oxygen arrangements have been completed. ARI/MODL Voice ID: [id number] Report ID: [id number]
[2023-11-13 05:41] VITALS: BMI 21.9
[2023-11-13 08:03] LABS: Hematocrit 40.2 % (39.6-49.0); Hemoglobin 13.4 g/dL (13.6-17.9); MCH 32.2 pg (27.0-35.0); MCHC 33.4 g/dL (32.0-36.0); MCV 96.4 fL (80-100); MPV 9.3 fL (7.6-11.3); Platelets 229 thou/uL (152-406); RBC Red Blood Cell Count 4.18 M/uL (4.33-5.43); Red Cell Distribution Width 15.4 % (12.1-15.2)
[2023-11-13] MEDS: AZITHROMYCIN 250 MG TAB PO SCH (08:20)
--- NOTE | 2023-11-13 08:58 | RAD REPORT ---
[facility]06 [facility] CLINICAL HISTORY: pneumonia COMPARISON: Chest Single View dated 11/12/2023; Chest Single View dated 11/11/2023; Chest Single View dated 11/09/2023; Chest Single View dated 11/08/2023 TECHNIQUE: Portable AP view of the chest. FINDINGS: Partially improved aeration in the right mid lung, inferiorly demarcated by a the minor fi ssure. No new focal airspace opacities. Left chest wall electronic device unchanged in position. No pneumothorax or effusion. The cardiomediastinal contours are unremarkable. IMPRESSION: Improving right sided airspace opacities, suggestive of pneumonia.
[2023-11-13 12:47] VITALS: BP 105/58; TEMP 97.1; O2SAT 92
--- NOTE | 2023-11-13 20:24 | DS ---
Date of Discharge: 11/13/2023 Disposition: Discharged to go home. Physical Examination: HEENT: Unremarkable. Lungs: Clear to auscultation except minimal right basal rales. Not using accessory muscles of respi ration. Heart: Sounds normal. Abdomen: Soft. Bowel sounds normal. No guarding, rigidity, tenderness, distention. Extremities: No leg edema. Discharge Medications And Instructions: Continue all prior home medications. Take following new medications. 1.Augmentin 875 mg 2 times a day with food for 1 week. 2.Prednisone 10 mg, take 3 tablets daily for 3 days, then 2 tablets daily for 3 days, then 1 tablet daily for 3 days, then stop. 3.Use oxygen 2 to 3 L/minute per nasal cannula. 4.Dulera inhaler 2 puffs by mouth 2 times a day, rinse mouth with water after use. 5.Do not smoke. 6.Follow up at my office next week. Laboratory Data: Upon admission, white count 8.9, hemoglobin 13.9, platelets 256. Sodium 139, potas sium 4.5, chloride 102, bicarb 27, BUN 36, creatinine 1.29, glucose 447. Lactic acid 3.8. Initial t roponin 119.1. Second troponin 107.4. Liver function tests unremarkable. Discharge Diagnoses: 1.Acute respiratory failure with hypoxia. 2.Acute exacerbation of COPD. 3.Pneumonia. 4.Coronary artery disease. 5.Hypertension. 6.Hyperlipidemia. 7.Peripheral vascular disease. 8.Prostate cancer. 9.Osteoarthritis, multiple sites. 10.NIDDM. 11.Paroxysmal atrial fibrillation next. Hospital Course: This is an 78-year-old very pleasant male patient admitted to the hospital with cou gh, congestion, and shortness of breath. Please see dictated H and P for more information. The otoniel ent was admitted to the hospital with acute exacerbation of COPD and pneumonia and acute respiratory failure with hypoxia. He was started on oxygen, IV antibiotic which was azithromycin and ceftriaxone and IV steroid. Overall, his condition improved, but as of past weekend, his chest x-ray showed wor sening of pneumonia with new right-sided pneumonia and at that time, we discontinued ceftriaxone and started him on Zosyn. His azithromycin was continued and Dr. Herrera was consulted from [facility] and we also added Mucomyst nebulizer treatment along with chest percussion. With all this gilmar nge in treatment, his condition improved and serial chest x-ray has shown improvement in this pneumon ia now and today, he was discharged to go home in stable condition. The patient continues to require oxygen replacement therapy and Social Service was consulted. Arrangements were made for home oxygen and today he was discharged to go home in stable condition with above-mentioned medications and inst ructions. The patient has a longstanding history of smoking and he was advised not to smoke anymore and especially not around his oxygen. His elevated cardiac enzyme which was due to demand ischemia a nd he sees his damage appraiser Dr. Green on a regular basis which he will continue to do so. The otoniel ent's advance directive during this hospitalization was do not resuscitate as per decision made by will ortiz ACA/KHUSHI Voice ID: [id number] Report ID: [id number]
== END 2023-11-13 13:30 | disposition home or self-care (01) | DRG 193 ==
LOC: SUPCPDRO 09:47 → ER 09:47 → ERHOLD 13:11 → 2ND 15:43
PROVIDERS: ADMIT Internal Medicine; ATTEND Internal Medicine
PROC: 5A09557 Assistance with Respiratory Ventilation, Greater than 96 Consecutive Hours, Continuous Positive Airway Pressure (ICD-10-PCS; principal; 2023-11-08)
DX: J18.9 Pneumonia, unspecified organism (principal); J96.01 Acute respiratory failure with hypoxia; J44.0 Chronic obstructive pulmonary disease with (acute) lower respiratory infection; J44.1 Chronic obstructive pulmonary disease with (acute) exacerbation; I10 Essential (primary) hypertension; M81.0 Age-related osteoporosis without current pathological fracture; E11.51 Type 2 diabetes mellitus with diabetic peripheral angiopathy without gangrene; I48.0 Paroxysmal atrial fibrillation; M19.09 Primary osteoarthritis, other specified site; N40.0 Benign prostatic hyperplasia without lower urinary tract symptoms; E78.00 Pure hypercholesterolemia, unspecified; I25.10 Atherosclerotic heart disease of native coronary artery without angina pectoris; F17.210 Nicotine dependence, cigarettes, uncomplicated; Z66 Do not resuscitate; Z11.52 Encounter for screening for COVID-19; Z79.82 Long term (current) use of aspirin; Z79.01 Long term (current) use of anticoagulants; Z85.46 Personal history of malignant neoplasm of prostate; Z79.899 Other long term (current) drug therapy
CPT/HCPCS: 36415; 71045; 71275; 80048; 80053; 82947; 83605; 83735; 83880; 84484; 85025; 85027; 85610; 85730; 87040; 87804; 87811; 93005; 94010; 94660; 94668; 94760; 96365; 96366; 96367; 96368; 96372; 96375; 99285; J0696; J1815; J1940; J2543; J2920; J2930; J3475; J3535; J7040; J7050; J7512; J7608; J7613; J7614; J7644; Q9967